=== PATIENT | male | born 1995 | race Caucasian/White ===

== ENCOUNTER → 2018-09-08 | Outpatient (CLI) | payer OTHER ==
[~2018-09-08] MED LIST: ALPR-429 PO; AMPH20CA15 PO; DULO30CA35 PO; DULO60CA56 PO; METH18ERPT PO; ONDA8TAB94 PO; SERT-1 PO; SERT-181 PO; TRAZ50TA34 PO
[2018-09-08 11:49] LABS: PLATELET COUNT, AUTOMATED 291 K/uL (150-450)
--- NOTE | 2018-09-08 12:41 | EKG ---
FACILITY: [facility] [place] PATIENT NAME: PANCHO FLETCHER : [id number] MR: [id number]: [id number] EXAM DATE: ORDERING PHYSICIAN: KIM PACHECO TECHNOLOGIST: PTE Test Reason : DRUG OD,INTENTIONAL Blood Pressure : / mmHG Vent. Rate : 074 BPM Atrial Rate : 074 BPM P-R Int : 138 ms QRS Dur : 100 ms QT Int : 370 ms P-R-T Axes : 052 090 060 degrees QTc Int : 410 ms Sinus rhythm with marked sinus arrhythmia Otherwise normal ECG No previous ECGs available Confirmed by ROSIE DAWSON ([id number]) on 09/08/2018 2:34:29 PM Referred By: KIM PACHECO Confirmed By:ROSIE DAWSON
== END ==
LOC: LAB 10:29
PROVIDERS: ATTEND Nurse Practitioner Primary Care
DX: T50.902A Poisoning by unspecified drugs, medicaments and biological substances, intentional self-harm, initial encounter (principal)
CPT/HCPCS: 36415; 80329; 82040; 82247; 82310; 82374; 82435; 82565; 82947; 84075; 84132; 84155; 84295; 84450; 84460; 84520; 85025